=== PATIENT | female | born 1975 | race African-American/Black ===

== ENCOUNTER 2017-01-07 12:14 | Emergency (ER) | payer OTHER ==
[~2017-01-07] VITALS: Ht 167.6 cm; Wt 76.0 kg
[2017-01-07 13:42] LABS: CHLORIDE 108 mEq/L (99-109); POTASSIUM 3.6 mEq/L (3.7-5.4); SODIUM 139 mEq/L (136-147)
[2017-01-07 13:44] LABS: GLUCOSE 98 mg/dL (70-99)
[2017-01-07 13:45] LABS: ANION GAP 7 MEQ/L (2-14)
[2017-01-07 13:47] LABS: GFR ESTIMATE (CALCULATED) > 59 mL/min/; HEMATOCRIT 24.8 % (36.0-46.0); MCH 17.8 PG (29.0-34.0); MCHC 27.8 G/DL (30.0-36.0); MCV 63.9 FL (83-99); MEAN PLAT.VOLUME 10.7 uM^3 (9.5-12.4); PLATELET COUNT 326 K/uL (156-360); RBC DIS.WIDTH-CV 19.2 % (11.8-14.6); RBC DIS.WIDTH-SD 40.8 % (39-53); RED BLOOD COUNT 3.88 M/uL (3.80-5.20); WHITE BLOOD COUNT 4.9 K/uL (4.1-10.2)
[2017-01-07 13:48] LABS: UREA NITROGEN (BUN) 9 mg/dL (9-23)
[2017-01-07 14:00] LABS: QUANTITATIVE HCG < 4.0 MIU/ML
[2017-01-07 16:35] VITALS: BP 113/77
== END 2017-01-07 16:36 | disposition home or self-care (01) ==
LOC: EME 12:14
DX: D64.9 Anemia, unspecified (principal); R42 Dizziness and giddiness
CPT/HCPCS: 80048; 81003; 84702; 85027; 86900; 86901; 99281; 99284